=== PATIENT | male | born 1935 | race Caucasian/White ===

== ENCOUNTER 2021-02-26 10:00 | Day surgery (SDC) | payer MEDICARE, BC ==
[2021-02-21 11:37] LABS: BASOPHILS % (AUTO) 0.5 % (0-1); EOSINOPHILS # (AUTO) 0.2 X10'3 (0-0.9); EOSINOPHILS % (AUTO) 2.6 % (0-6); HEMATOCRIT 38.9 % (42.0-52.0); HEMOGLOBIN 13.4 g/dl (14.0-17.9); LYMPHOCYTES # (AUTO) 2.8 X10'3 (1.1-4.8); LYMPHOCYTES % (AUTO) 34.6 % (21-51); MEAN CORPUSCULAR HEMOGLOBIN 30.4 PG (27.0-31.0); MEAN CORPUSCULAR HGB CONC 34.4 g/dL (33.0-36.5); MEAN CORPUSCULAR VOLUME 88.5 FL (78-98); MEAN PLATELET VOLUME 8.6 FL (7.4-10.4); MONOCYTES # (AUTO) 0.8 X10'3 (0-0.9); MONOCYTES % (AUTO) 10.4 % (2-12); NEUTROPHILS # (AUTO) 4.2 X10'3 (1.8-7.7); NEUTROPHILS % (AUTO) 51.9 % (42-75); PLATELET COUNT 248 X10'3 (140-440); RED BLOOD COUNT 4.39 X10'6 (4.70-6.10); RED CELL DISTRIBUTION WIDTH 13.7 % (11.5-14.5)
[2021-02-21 11:49] LABS: PARTIAL THROMBOPLASTIN TIME 26 SECONDS (22-32)
[2021-02-21 12:06] LABS: ANION GAP 11 (8-16); BLOOD UREA NITROGEN 21 MG/DL (7-18); BUN/CREATININE RATIO 16.4 (5.4-32.0); CHLORIDE 106 MMOL/L (99-107); CREATININE 1.28 MG/DL (0.60-1.10); GLUCOSE 117 MG/DL (70-104); POTASSIUM 4.2 MMOL/L (3.5-5.1); SODIUM 144 MMOL/L (135-145); TOTAL CARBON DIOXIDE 26.8 MMOL/L (24-32)
[2021-02-21 12:07] LABS: ALBUMIN 3.3 G/DL (3.4-5.0); CALCIUM 8.9 MG/DL (8.5-10.1); eGFR 54 ML/MIN
[2021-02-26] VITALS (9 sets, daily range): BP systolic 136–173; BP diastolic 60–77
[~2021-02-26] VITALS: Ht 188 cm; Wt 81.2 kg
[2021-02-26] MEDS ORDERED: LORazepam 0.5 MG tablet PO PRN (10:20)
[2021-02-26] MEDS ORDERED: normal saline 1,000 ML IV SCH (10:20)
[2021-02-26] MEDS ORDERED: diphenhydrAMINE 25mg capsule PO PRN (10:20)
[2021-02-26] MEDS ORDERED: SITA100T15 PO (10:31)
[2021-02-26] MEDS ORDERED: METF-436 PO (10:31)
[2021-02-26] MEDS ORDERED: ASPI-1397 PO (10:31)
[2021-02-26] MEDS ORDERED: NIFE-33 PO (10:31)
[2021-02-26] MEDS ORDERED: FLO0.4C PO (10:31)
[2021-02-26] MEDS ORDERED: ATEN50TA2 PO (10:31)
[2021-02-26] MEDS ORDERED: ATOR40TA72 PO (10:31)
[2021-02-26] MEDS ORDERED: DUTA0.5C36 PO (10:38)
[2021-02-26] MEDS ORDERED: LIDOcaine/PRILOcaine 5gm cream TP ONE (10:55)
[2021-02-26] MEDS ORDERED: LIDOcaine 1% (10mg/ml)w/preservative injection 20ml MDV ONE (12:08)
[2021-02-26] MEDS ORDERED: nitroGLYCERIN-Tridil 50MG/D5W 250 ML IV ONE (12:08)
[2021-02-26] MEDS ORDERED: midazolam 1 mg/ML 2ml injection ONE (12:08)
[2021-02-26] MEDS ORDERED: verapamil 2.5 mg/ml inj IV ONE (12:08)
[2021-02-26] MEDS ORDERED: fentaNYL/PF 50MCG/1 ML 2ML syringe ONE (12:08)
[2021-02-26] MEDS ORDERED: iohexol 350MG/ML 100ml bottle IV ONE (12:09)
[2021-02-26] MEDS ORDERED: heparin 1,000unit/ml 10ml vial 10 ML ONE (12:09)
[2021-02-26] MEDS ORDERED: normal saline 1000ml 1,000 ML IV SCH (14:20)
[2021-02-26] MEDS ORDERED: ondansetron/PF 4mg/2ml inj IV PRN (14:20)
[2021-02-26] MEDS ORDERED: OXAZEpam 15mg capsule PO PRN (14:20)
[2021-02-26] MEDS ORDERED: proCHLORperazine 10 MG/2 ml inj IV PRN (14:20)
== END 2021-02-26 17:10 | disposition home or self-care (01) ==
LOC: SSTAY O 10:00
PROVIDERS: ATTEND Internal Medicine Interventional Cardiology
DX: I35.0 Nonrheumatic aortic (valve) stenosis (principal); I25.10 Atherosclerotic heart disease of native coronary artery without angina pectoris; E11.9 Type 2 diabetes mellitus without complications; I10 Essential (primary) hypertension; I65.29 Occlusion and stenosis of unspecified carotid artery; E78.00 Pure hypercholesterolemia, unspecified; Z79.84 Long term (current) use of oral hypoglycemic drugs; Z79.82 Long term (current) use of aspirin; Z79.01 Long term (current) use of anticoagulants; Z79.899 Other long term (current) drug therapy
CPT/HCPCS: 36415; 80048; 82948; 85025; 85610; 85730; 93005; 93454; 99152; 99153; C1769; C1894; J1644; J2001; J2250; J3010; J7030; Q0163; Q9967; A4620; A6258; J3490

== ENCOUNTER 2021-03-08 08:40 | Outpatient (CLI) | payer MEDICARE, BC ==
[~2021-03-08 08:40] MED LIST: ASPI-1397 PO; ATEN50TA2 PO; ATOR40TA72 PO; DUTA0.5C36 PO; FLO0.4C PO; METF-436 PO; NIFE-33 PO; SITA100T15 PO
[2021-03-08 09:25] LABS: BASOPHILS % (AUTO) 0.7 % (0-1); EOSINOPHILS # (AUTO) 0.2 X10'3 (0-0.9); EOSINOPHILS % (AUTO) 2.8 % (0-6); HEMATOCRIT 39.6 % (42.0-52.0); HEMOGLOBIN 13.5 g/dl (14.0-17.9); LYMPHOCYTES % (AUTO) 30.4 % (21-51); MEAN CORPUSCULAR HEMOGLOBIN 30.3 PG (27.0-31.0); MEAN CORPUSCULAR HGB CONC 34.1 g/dL (33.0-36.5); MEAN PLATELET VOLUME 8.5 FL (7.4-10.4); MONOCYTES # (AUTO) 0.7 X10'3 (0-0.9); MONOCYTES % (AUTO) 10.6 % (2-12); NEUTROPHILS # (AUTO) 3.7 X10'3 (1.8-7.7); NEUTROPHILS % (AUTO) 55.5 % (42-75); PLATELET COUNT 282 X10'3 (140-440); RED BLOOD COUNT 4.45 X10'6 (4.70-6.10); WHITE BLOOD COUNT 6.6 X10'3 (4.5-11.0)
[2021-03-08 09:52] LABS: ALANINE AMINOTRANSFERASE 41 U/L (12-78); ALBUMIN 3.4 G/DL (3.4-5.0); ALBUMIN/GLOBULIN RATIO 0.9 (1.1-1.5); ALKALINE PHOSPHATASE 67 IU/L (46-116); ANION GAP 9 (8-16); ASPARTATE AMINO TRANSFERASE 31 U/L (10-37); BLOOD UREA NITROGEN 28 MG/DL (7-18); BUN/CREATININE RATIO 20.7 (5.4-32.0); CALCIUM 9.3 MG/DL (8.5-10.1); CHLORIDE 109 MMOL/L (99-107); CREATININE 1.35 MG/DL (0.60-1.10); GLUCOSE 154 MG/DL (70-104); POTASSIUM 3.8 MMOL/L (3.5-5.1); SODIUM 147 MMOL/L (135-145); TOTAL CARBON DIOXIDE 29.2 MMOL/L (24-32); TOTAL PROTEIN 7.2 G/DL (6.4-8.2); eGFR 50 ML/MIN
[2021-03-08] MEDS ORDERED: IODIXANOL 320 MG/ML INFUS..BTL 50ML IV ONE (10:56)
[2021-03-08] MEDS ORDERED: IODIXANOL 320 MG/ML INFUS..BTL 100ML IV ONE (10:56)
== END 2021-03-08 23:59 | disposition home or self-care (01) ==
LOC: LAB 08:40
PROVIDERS: ATTEND Internal Medicine Cardiovascular Disease
DX: K57.30 Diverticulosis of large intestine without perforation or abscess without bleeding (principal); N28.1 Cyst of kidney, acquired; I70.0 Atherosclerosis of aorta; I25.10 Atherosclerotic heart disease of native coronary artery without angina pectoris; Z20.822 Contact with and (suspected) exposure to COVID-19
CPT/HCPCS: 36415; 71046; 71275; 74174; 80053; 85025; 87635; 94010; 94727; 94729; C9803; Q9967

== ENCOUNTER 2021-03-28 06:03 | Inpatient (IN) | payer MEDICARE, BC ==
[2021-03-25 11:23] LABS: BASOPHILS % (AUTO) 0.4 % (0-1); EOSINOPHILS # (AUTO) 0.1 X10'3 (0-0.9); EOSINOPHILS % (AUTO) 1.2 % (0-6); LYMPHOCYTES # (AUTO) 2.2 X10'3 (1.1-4.8); MEAN CORPUSCULAR HEMOGLOBIN 29.6 PG (27.0-31.0); MEAN CORPUSCULAR HGB CONC 33.4 g/dL (33.0-36.5); MEAN CORPUSCULAR VOLUME 88.7 FL (78-98); MEAN PLATELET VOLUME 8.6 FL (7.4-10.4); MONOCYTES % (AUTO) 10.8 % (2-12); NEUTROPHILS # (AUTO) 5.7 X10'3 (1.8-7.7); NEUTROPHILS % (AUTO) 63.6 % (42-75); PRE OP HEMATOCRIT 40.1 % (42.0-52.0); PRE OP HEMOGLOBIN 13.4 g/dL (14.0-17.9); PRE OP PLATELET COUNT 293 X10'3 (140-440); RED BLOOD COUNT 4.52 X10'6 (4.70-6.10); RED CELL DISTRIBUTION WIDTH 13.6 % (11.5-14.5)
[2021-03-25 11:35] LABS: PRE OP PROTIME 10.7 SECONDS (9.0-12.0)
[2021-03-25 11:43] LABS: ALBUMIN 3.4 G/DL (3.4-5.0); ALBUMIN/GLOBULIN RATIO 0.9 (1.1-1.5); ALKALINE PHOSPHATASE 64 IU/L (46-116); BLOOD UREA NITROGEN 22 MG/DL (7-18); BUN/CREATININE RATIO 19.5 (5.4-32.0); CALCIUM 8.9 MG/DL (8.5-10.1); CHLORIDE 106 MMOL/L (99-107); CREATININE 1.13 MG/DL (0.60-1.10); PRE OP ALT 39 U/L (30-65); PRE OP ANION GAP 11 (8-16); PRE OP AST 27 U/L (10-37); PRE OP BILIRUB, TOTAL 0.7 MG/DL (0.0-1.0); PRE OP GLUCOSE 140 MG/DL (70-104); PRE OP POTASSIUM 3.9 MMOL/L (3.4-5.1); PRE OP SODIUM 144 MMOL/L (135-145); TOTAL CARBON DIOXIDE 27.2 MMOL/L (24-32); TOTAL PROTEIN 7.2 G/DL (6.4-8.2); eGFR 62 ML/MIN
[2021-03-25 11:48] LABS: CLARITY,URINE CLEAR (Clear); COLOR,URINE DARK YELLOW (Yellow); PROTEIN,URINE 300 mg/dl (Neg); UA COLLECTION TYPE VOIDED
[2021-03-25 11:49] LABS: GLUCOSE, URINE NEGATIVE (Neg); KETONES,URINE NEGATIVE (Neg); LEUKOCYTE ESTERASE ,URINE NEGATIVE (Neg); NITRITES, URINE NEGATIVE (Neg); OCCULT BLOOD,URINE NEGATIVE (Neg)
[2021-03-25 11:55] LABS: BACTERIA,URINE NONE SEEN /HPF (Neg); HYALINE CASTS 0-3 /LPF (NEGATIVE); MUCUS STRANDS FEW /LPF (Neg); RBC,URINE NONE SEEN /HPF (0-2); SQUAMOUS EPITHELIAL CELL,UR FEW /LPF (FEW); WBC,URINE NONE SEEN /HPF (0-4)
[~2021-03-28] VITALS: Ht 182.9 cm; Wt 80.6 kg
[2021-03-28] VITALS (27 sets, daily range): BP systolic 100–177; BP diastolic 50–87
[2021-03-28] MEDS: nitroPRUSSIDE (NIPRIDE) (200MCG/ML) 100ML Drip IV SCH ×2 (05:30→22:48)
[2021-03-28] MEDS: phenylephrine inj 50 MG in normal saline 250ml IV soln 245 ML IV SCH (05:30)
[~2021-03-28 06:03] MED LIST changes: -ATEN50TA2 PO; -FLO0.4C PO; +aspirin 325mg tablet PO ONE; +cefazolin/dext.iso 2gm/50ml IV ONE; +famotidine 20mg tablet PO ONE; +ondansetron/PF 4mg/2ml inj IV PRN; +ringers solution, lacted 1,000 ML IV SCH; +vancomycin 1,500 MG in NS 300ml IV soln IV ONE
[2021-03-28] MEDS ORDERED: LIDOcaine 1% (10mg/ml)w/preservative injection 20ml MDV ONE (09:08)
[2021-03-28] MEDS ORDERED: heparin 1,000 UNITS/NS 500ml 1,500 ML ONE (09:08)
[2021-03-28] MEDS ORDERED: iohexol 350MG/ML 100ml bottle IV ONE (09:08)
[2021-03-28] MEDS ORDERED: iohexol 350 MG/ML 50ML vial IV ONE (09:08)
[2021-03-28] MEDS ORDERED: fentaNYL/PF 50MCG/1 ML 2ML syringe ONE ×2 (09:22→10:33)
[2021-03-28] MEDS ORDERED: midazolam 1 mg/ML 2ml injection ONE (09:23)
[2021-03-28] MEDS ORDERED: ketamine 50mg/5ml syringe ONE (10:11)
[2021-03-28] MEDS ORDERED: propofol inj 20 ML IV ONE (10:25)
[2021-03-28] MEDS ORDERED: LIDOcaine 2% (20mg/ml) 5ml vial ONE (10:25)
[2021-03-28] MEDS ORDERED: hydrALAZINE 20mg/ml inj. IV ONE (10:26)
--- NOTE | 2021-03-28 10:38 | NUR ---
Received from OR via BED, accompanied by Anesthesiologist DR CALDERÓN and report given by Anesthesiologist AND DONKEY ENGINE FIRER/FIREMAN. PT DROWSY, DENIES PAIN. BILAT GROINS W/MALE MARYCRUZ'S CDI, SOFT, NO SWELLING, OOZING OR HEMATOMA NOTED. BILAT PEDAL AND TIBIAL PULSES PALPABLE. 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 PT RESTING COMFORTABLE, NO C/O. Addendum: 03/28/21 at 1126 by Misa May RN Amended: Links added.
[2021-03-28] MEDS ORDERED: docusate sod 100mg capsule PO PRN (10:40)
[2021-03-28] MEDS ORDERED: potassium CL 10mEq/100ml bag 100 ML IV PRN (10:40)
[2021-03-28] MEDS ORDERED: magnesium 4gm in 100ml NS 100 ML IV PRN (10:40)
[2021-03-28] MEDS ORDERED: ondansetron/PF 4mg/2ml inj IV PRN ×2 (10:40→10:45)
[2021-03-28] MEDS ORDERED: dextrose 50%-water 50ml dispensing syringe IV PRN ×2 (10:40)
[2021-03-28] MEDS ORDERED: ALPRAZolam 0.25mg tablet PO PRN (10:40)
[2021-03-28] MEDS ORDERED: insulin regular, human U-100 3ml vial - multi-dose SQ SCH (10:40)
[2021-03-28] MEDS ORDERED: potassium Cl 40MEQ/1/2NS 520ml 520 ML IV PRN (10:40)
[2021-03-28] MEDS: normal saline 1000ml 1,000 ML IV SCH ×2 (10:40→20:40)
[2021-03-28] MEDS ORDERED: MESSAGE TO PHARMACY PO ONE (10:40)
[2021-03-28] MEDS ORDERED: labetalol 20mg/4ml (5mg/ml) syringe IV PRN (10:40)
[2021-03-28] MEDS ORDERED: potassium Cl 20 mEq SR tablet PO PRN (10:40)
[2021-03-28] MEDS ORDERED: pantoprazole 40mg Tablet.DR PO PRN (10:40)
[2021-03-28] MEDS ORDERED: insulin Lispro (HumaLOG) vial - multi-dose SQ SCH (10:40)
[2021-03-28] MEDS ORDERED: dextrose ORAL solution 15 GM/59 ML bottle PO PRN ×2 (10:40)
[2021-03-28] MEDS ORDERED: diphenhydrAMINE 25mg capsule PO PRN (10:40)
[2021-03-28] MEDS ORDERED: magnesium 2GM in 50ml NS 50 ML IV PRN (10:40)
[2021-03-28] MEDS ORDERED: glucagon, human recombinant 1mg kit SUBCUT PRN (10:40)
[2021-03-28] MEDS ORDERED: ringers solution, lacted 1,000 ML IV SCH (10:45)
[2021-03-28] MEDS ORDERED: morphine 2 MG/ML inj. syringe IV PRN (10:45)
[2021-03-28] MEDS: hydrALAZINE 20mg/ml inj. IV PRN ×2 (11:34→12:05)
[2021-03-28] MEDS ORDERED: NIFEdipine XL 30mg tablet PO ONE (12:40)
--- NOTE | 2021-03-28 12:44 | NUR ---
BP REMAINS ELEVATED, CALLED DR RICARDO, CUFF PRESSURE AND ARTERIAL PRESSURE 30-36 POINTS DIFFERENCE, INSTRUCTED TO USE CUFF PRESSURE AND D/C ART LINE, PROCARDIA 60 MG ORDERED TO BE GIVEN. Addendum: 03/28/21 at 1246 by Misa May RN Amended: Links added.
--- NOTE | 2021-03-28 14:08 | NUR ---
ARTERIAL LINE D/CD, GAUZE DRSG APPLIED AND HELD UNTIL HEMOSTASIS ACHEIVED, COBAN APPLIED OVER DRSG. PROCARDIA GIVEN AND BP REMAINS 160'S, CALLED AND DISCUSSED W/JUANPABLO DAVALOS TO TRANSPORT PT. Report called to receiving nurse. Transferred via BED ON , 1 BAG OF Belongings SENT TO ROOM 4683N. RECEVING RN AWARE OF PTS ARRIVAL, AID AT BEDSIDE TO ATTACH PT TO CM. BILAT GROIN SITES REMAIN W/O CHANGE. Special Issues communicated to receiving nurse. YES. Addendum: 03/28/21 at 1431 by Misa May RN Amended: Links added.
--- NOTE | 2021-03-28 14:30 | NUR ---
Pt arrived to room 3015A. Pt laying flat, post TAVR. BP: 155/80, HR 85, RR 18, O2: 98% RA.
[2021-03-28] MEDS: acetaminophen 325mg tablet PO PRN ×2 (15:55→20:02)
[2021-03-28] MEDS: ceFAZolin 1GM/D5W- ADD-VANTAGE 50 ML IV SCH ×2 (15:58→23:36)
[2021-03-28] MEDS: sod chloride 0.9% 10ml flush syringe IV SCH (16:03)
--- NOTE | 2021-03-28 17:37 | NUR ---
Pt ambulated with no assistance on RA to bathroom and back. No complaints of SOB or discomfort.
--- NOTE | 2021-03-28 18:00 | NUR ---
Patient in room PCU 3015. I have received report from MINA CAMPBELL and had the opportunity to ask questions and assume patient care.
--- NOTE | 2021-03-28 18:31 | NUR ---
Problems reprioritized. Patient report given, questions answered & plan of care reviewed with Jennifer CAMPBELL.
[2021-03-28] MEDS: vancomycin/NS 1 GM ADD-VANTAGE 250 ML IV SCH (20:01)
[2021-03-28] MEDS ORDERED: insulin glargine (Lantus) pen - multi-dose SQ SCH (21:00)
[2021-03-29 02:00] VITALS: BP 138/54
[2021-03-29] MEDS: phenylephrine inj 50 MG in normal saline 250ml IV soln 245 ML IV SCH (03:07)
[2021-03-29] MEDS: acetaminophen 325mg tablet PO PRN ×2 (05:03→12:58)
--- NOTE | 2021-03-29 06:00 | NUR ---
Problems reprioritized. Patient report given, questions answered & plan of care reviewed with MINA CAMPBELL.
--- NOTE | 2021-03-29 06:00 | NUR ---
Patient in room PCU 3015. I have received report from Jennifer CAMPBELL and had the opportunity to ask questions and assume patient care.
[2021-03-29 07:02] LABS: BASOPHILS % (AUTO) 0.2 % (0-1); EOSINOPHILS # (AUTO) 0.1 X10'3 (0-0.9); EOSINOPHILS % (AUTO) 0.5 % (0-6); HEMATOCRIT 33.5 % (42.0-52.0); HEMOGLOBIN 11.7 g/dl (14.0-17.9); LYMPHOCYTES # (AUTO) 1.2 X10'3 (1.1-4.8); LYMPHOCYTES % (AUTO) 11.9 % (21-51); MEAN CORPUSCULAR HEMOGLOBIN 30.6 PG (27.0-31.0); MEAN CORPUSCULAR VOLUME 87.4 FL (78-98); MEAN PLATELET VOLUME 8.8 FL (7.4-10.4); MONOCYTES # (AUTO) 1.2 X10'3 (0-0.9); MONOCYTES % (AUTO) 12.1 % (2-12); NEUTROPHILS # (AUTO) 7.7 X10'3 (1.8-7.7); NEUTROPHILS % (AUTO) 75.3 % (42-75); PLATELET COUNT 213 X10'3 (140-440); RED BLOOD COUNT 3.83 X10'6 (4.70-6.10); RED CELL DISTRIBUTION WIDTH 13.7 % (11.5-14.5); WHITE BLOOD COUNT 10.2 X10'3 (4.5-11.0)
[2021-03-29 07:29] LABS: ALANINE AMINOTRANSFERASE 29 U/L (12-78); ALBUMIN 2.7 G/DL (3.4-5.0); ALBUMIN/GLOBULIN RATIO 0.9 (1.1-1.5); ALKALINE PHOSPHATASE 60 IU/L (46-116); ANION GAP 9 (8-16); ASPARTATE AMINO TRANSFERASE 28 U/L (10-37); BILIRUBIN,TOTAL 0.7 MG/DL (0.1-1.0); BLOOD UREA NITROGEN 20 MG/DL (7-18); BUN/CREATININE RATIO 18.2 (5.4-32.0); CALCIUM 8.1 MG/DL (8.5-10.1); CHLORIDE 112 MMOL/L (99-107); GLUCOSE 117 MG/DL (70-104); MAGNESIUM 1.6 MG/DL (1.5-2.4); POTASSIUM 3.2 MMOL/L (3.5-5.1); SODIUM 146 MMOL/L (135-145); TOTAL CARBON DIOXIDE 25.3 MMOL/L (24-32); TOTAL PROTEIN 5.7 G/DL (6.4-8.2); eGFR 64 ML/MIN
[2021-03-29] MEDS ORDERED: atorvastatin 20mg tablet PO SCH (08:00)
[2021-03-29] MEDS ORDERED: dutasteride 0.5 MG capsule PO SCH (08:00)
[2021-03-29] MEDS ORDERED: NIFEdipine XL 30mg tablet PO SCH (08:00)
[2021-03-29] MEDS ORDERED: aspirin 81mg, enteric-coated 1 TAB TABLET.DR PO SCH (08:00)
[2021-03-29] MEDS: ceFAZolin 1GM/D5W- ADD-VANTAGE 50 ML IV SCH (08:28)
[2021-03-29] MEDS: sod chloride 0.9% 10ml flush syringe IV SCH ×2 (08:34)
[2021-03-29] MEDS: vancomycin/NS 1 GM ADD-VANTAGE 250 ML IV SCH (09:04)
[2021-03-29 10:44] LABS: BASOPHILS % (AUTO) 0.2 % (0-1); EOSINOPHILS # (AUTO) 0.1 X10'3 (0-0.9); EOSINOPHILS % (AUTO) 0.5 % (0-6); HEMATOCRIT 35.8 % (42.0-52.0); HEMOGLOBIN 12.1 g/dl (14.0-17.9); LYMPHOCYTES # (AUTO) 1.3 X10'3 (1.1-4.8); LYMPHOCYTES % (AUTO) 11.9 % (21-51); MEAN CORPUSCULAR HGB CONC 33.8 g/dL (33.0-36.5); MEAN CORPUSCULAR VOLUME 88.8 FL (78-98); MEAN PLATELET VOLUME 8.7 FL (7.4-10.4); MONOCYTES # (AUTO) 1.3 X10'3 (0-0.9); MONOCYTES % (AUTO) 12.3 % (2-12); NEUTROPHILS # (AUTO) 8.1 X10'3 (1.8-7.7); NEUTROPHILS % (AUTO) 75.1 % (42-75); PLATELET COUNT 218 X10'3 (140-440); RED BLOOD COUNT 4.03 X10'6 (4.70-6.10); RED CELL DISTRIBUTION WIDTH 13.8 % (11.5-14.5); WHITE BLOOD COUNT 10.8 X10'3 (4.5-11.0)
--- NOTE | 2021-03-29 10:48 | NUR ---
Ambulated Pt 300ft on RA with no assistive devices. No complaints of SOB or discomfort while ambulating. Pt sated in mid 90's entire time.
[2021-03-29 13:00] VITALS: BP 123/55
== END 2021-03-29 13:30 | disposition home or self-care (01) | DRG 267 ==
LOC: PAS IN 06:03 → EDSTATUS 08:45 → PCU 3S 14:16
PROVIDERS: ADMIT Internal Medicine Cardiovascular Disease; ATTEND Internal Medicine Cardiovascular Disease
PROC: B41D1ZZ Fluoroscopy of Aorta and Bilateral Lower Extremity Arteries using Low Osmolar Contrast (ICD-10-PCS; 2021-03-28)
PROC: 02RF38Z Replacement of Aortic Valve with Zooplastic Tissue, Percutaneous Approach (ICD-10-PCS; principal; 2021-03-28 09:23)
DX: I35.0 Nonrheumatic aortic (valve) stenosis (principal); Z00.6 Encounter for examination for normal comparison and control in clinical research program; E11.9 Type 2 diabetes mellitus without complications; E78.00 Pure hypercholesterolemia, unspecified; E78.5 Hyperlipidemia, unspecified; I10 Essential (primary) hypertension; N40.0 Benign prostatic hyperplasia without lower urinary tract symptoms; Z86.73 Personal history of transient ischemic attack (TIA), and cerebral infarction without residual deficits
CPT/HCPCS: 33361; 36415; 71045; 80053; 81001; 82948; 83036; 83735; 83880; 85025; 85347; 85610; 85730; 86885; 86900; 86901; 86920; 87081; 93005; 93308; A4618; A6258; A6449; C1756; C1760; C1769; C1894; G0378; J0360; J0690; J1644; J1815; J2001; J2250; J2370; J2704; J3010; J3370; J3490; J7030; J7040; J7050; J7120; Q9967; U0003; U0005